=== PATIENT | male | born 1955 | race African-American/Black ===

== ENCOUNTER 2017-01-07 04:43 | Emergency (ER) | payer MEDICAID, MEDICARE ==
[~2017-01-07] VITALS: Ht 172.7 cm; Wt 82.0 kg
[~2017-01-07 04:43] MED LIST: HYDR-519 PO; SULF1TAB48 PO
[2017-01-07] MEDS ORDERED: HYDROCODONE/ACETAMINOPHEN 5/325MG TABLET PO ONE (06:45)
[2017-01-07] MEDS ORDERED: ONDANSETRON 4MG ODT PO ONE (06:45)
[2017-01-07] MEDS ORDERED: LIDOCAINE HCL/EPINEPHRINE 1%-EPI 1:100,000 30 ML VIAL INFIL ONE (07:00)
[2017-01-07] MEDS ORDERED: POVIDONE-IODINE 10% TOPICAL SOLN 240ML TOP ONE (07:00)
[2017-01-07 11:31] VITALS: BP 128/82
[2017-01-07 12:21] LABS: CLARITY URINE CLEAR (CLEAR); COLOR URINE YELLOW (YELLOW); GLUCOSE URINE NEGATIVE (NEGATIVE); KETONES URINE NEGATIVE (NEGATIVE); LEUKOCYTE ESTERASE URINE NEGATIVE (NEGATIVE); NITRITE URINE NEGATIVE (NEGATIVE); OCCULT BLOOD URINE NEGATIVE (NEGATIVE); PROTEIN URINE NEGATIVE (NEGATIVE); SPECIFIC GRAVITY URINE 1.011 (1.005-1.030); UROBILINOGEN URINE 0.2 E.U./dL (0.2-1.0)
[2017-01-07 12:28] LABS: *AMPHETAMINES SCREEN URINE NEGATIVE (NEGATIVE); *BARBITURATES SCREEN URINE NEGATIVE (NEGATIVE); *BENZODIAZEPINES SCREEN URINE NEGATIVE (NEGATIVE); *COCAINE SCREEN URINE PRESUMTIVE POSITIVE (NEGATIVE); CANNABINOID URINE SCREEN NEGATIVE (NEGATIVE); ECSTASY MDMA SCREEN URINE NEGATIVE (NEGATIVE); METHADONE URINE SCREEN NEGATIVE (NEGATIVE); OPIATES URINE SCREEN PRESUMTIVE POSITIVE (NEGATIVE); PHENCYCLIDINE URINE SCREEN NEGATIVE (NEGATIVE)
== END 2017-01-07 14:23 | disposition home or self-care (01) ==
LOC: ER 07:19
DX: S01.112A Laceration without foreign body of left eyelid and periocular area, initial encounter (principal); M54.2 Cervicalgia; M25.561 Pain in right knee; R51 Headache; M54.5 Low back pain; Z88.6 Allergy status to analgesic agent; Z98.890 Other specified postprocedural states; Y08.89XA Assault by other specified means, initial encounter; Y93.89 Activity, other specified; Y99.8 Other external cause status; Y92.89 Other specified places as the place of occurrence of the external cause
CPT/HCPCS: 12011; 70450; 70486; 72125; 73080; 73130; 73562; 80305; 81003; 99285; A4246; Q0162; X7700; Z7610; A4565

== ENCOUNTER 2017-12-18 10:42 | Emergency (ER) | payer MEDICAID, MEDICARE ==
[~2017-12-18] VITALS: Ht 175.3 cm; Wt 91.0 kg
[2017-12-18] MEDS ORDERED: KETOROLAC 60MG/2ML VIAL IM ONE (11:00)
[2017-12-18] MEDS ORDERED: ACETAMINOPHEN 500MG TABLET PO ONE (12:45)
[2017-12-18 13:12] VITALS: BP 135/78
== END 2017-12-18 13:16 | disposition home or self-care (01) ==
LOC: ER 11:31
DX: M19.041 Primary osteoarthritis, right hand (principal); M85.80 Other specified disorders of bone density and structure, unspecified site; M79.641 Pain in right hand; I10 Essential (primary) hypertension; M17.0 Bilateral primary osteoarthritis of knee; Z98.1 Arthrodesis status; Z88.6 Allergy status to analgesic agent
CPT/HCPCS: 73130; 96372; 99284; J1885